=== PATIENT | male | born 1970 | race Hispanic/Latino ===

== ENCOUNTER 2016-10-27 08:45 | Emergency (ER) | payer SELFPAY ==
[2016-10-27 09:33] LABS: %Lymphocytes 36.5 % (21.0-51.0); Hematocrit 50.7 % (42.0-52.0); Mean Platelet Volume 7.6 fL (7.4-10.4); White Blood Cell (WBC) Count 5.5 thou/uL (4.8-10.8)
[2016-10-27 09:34] LABS: #Basophils 0.1 thou/uL (0.0-0.2); #Eosinphils 0.1 thou/uL (0.0-0.7); #Monocytes 0.3 thou/uL (0.11-0.59); #Neutrophils 3.1 thou/uL (1.40-6.50); %Basophils 1.3 % (0.0-1.0); %Eosinophils 0.9 % (0.0-10.0); %Monocytes 6.1 % (0.0-10.0)
[2016-10-27] MEDS ORDERED: traMADol HCl 50 MG TAB ONE (09:37)
[2016-10-27 09:53] LABS: ALT (SGPT) 40 U/L (0-55); AST (SGOT) 24 U/L (5-34); Alkaline Phosphatase 125 U/L (40-150); Anion Gap 14 mmol/L (10-20); BUN (Urea Nitrogen) 15 mg/dL (8.9-20.6); Bilirubin, Total 0.3 mg/dL (0.2-1.2); Calc. Creatinine Clearance 0 mL/min (70-130); Calcium 9.1 mg/dL (7.8-10.44); Carbon Dioxide 24 mmol/L (22-29); Chloride 106 mmol/L (98-107); Estimated GFR-MDRD 84; Globulin 3.5 g/dL (2.4-3.5); Protein, Total 7.9 g/dL (6.0-8.3)
[2016-10-27 09:57] LABS: Troponin I Less than 0.010 ng/mL (< 0.028)
--- NOTE | 2016-10-27 10:37 | ERRECORD ---
[facility] EMERGENCY RECORD HPI SHORTNESS OF BREATH (:07 SHAN) CHIEF COMPLAINT: Patient presents for evaluation of shortness of breath, Patient presents for evaluation of sore throat, back pain, cough. HISTORIAN: History provided by patient, History provided by patient's spouse, History provided by patient's family. ASSOCIATED WITH: Associated with anxiety. EXACERBATED BY: Patient's condition exacerbated by nothing. RELIEVED BY: Patient's condition relieved by nothing. ROS (:07 SHAN) CONSTITUTIONAL: Negative constitutional review of systems. EYES: Negative eye review of systems. ENT: Negative ears, nose, throat review of systems. CARDIOVASCULAR: Negative cardiovascular review of systems. RESPIRATORY: Historian reports cough. GI: Negative gastrointestinal review of systems. MUSCULOSKELETAL: Negative musculoskeletal review of systems. SKIN: Negative skin review of systems. NEUROLOGIC: Negative neurologic review of systems. NOTES: All systems reviewed, negative except as described above. PAST MEDICAL HISTORY (09:03 BDON) MEDICAL HISTORY: No past medical history, Flu vaccine not up to date, Tetanus not up to date, Pneumococcal vaccine not up to date. MALE SURGICAL HISTORY: Patient has no surgical history. PSYCHIATRIC HISTORY: No previous psychiatric history. SOCIAL HISTORY: Patient denies alcohol use, Patient denies drug use, Patient is a former tobacco user, smoked cigarettes, Lives at home, with family. KNOWN ALLERGIES No Known Drug Allergies CURRENT MEDICATIONS (09: EPIE) None VITAL SIGNS VITAL SIGNS: BP: 165/78, Pulse: 85, Resp: 18, Pain: 3, O2 sat: 98, Time: 10/27/2016 08:57. (08:57 EPIE) Temp: 98.0 (Oral), Time: 10/27/2016 09:01. (09: EPIE) BP: 143/73, Pulse: 76, Resp: 20, O2 sat: 96 on Room Air, Time: 10/27/2016 09:30. (09:30 EPIE) BP: 132/59, Pulse: 69, Resp: 16, O2 sat: 97 on Room Air, Time: 10/27/2016 10:00. (10:00 EPIE) BP: 116/65, Pulse: 68, Resp: 18, Temp: 98.1 ORAL, Pain: 1, O2 sat: 98 on ra, Time: 10/27/2016 10:26. (10:26 EPIE) PHYSICAL EXAM (09:07 SHAN) &a-1R&a+25V*p+0X*m1933Y*c202B*c15G*c2P*p-0X&a-25V&a+1R Name: Austin Mitchell : 1970 M45 MedRec: [id number] AcctNum: [id number] Prepared: Merle Oct 27, 2016 10:33 by Interface Page 1 of 3 pMD [facility] EMERGENCY RECORD CONSTITUTIONAL: Patient afebrile, Pulse normal, Blood pressure normal, Respiratory rate normal, Normal pulse oximetry, Patient appears non toxic, Patient appears pain free, Patient alert and oriented to person, place and time, Nursing notes reviewed. HEAD: Head exam included findings of head atraumatic, normocephalic. EYES: Eye exam included findings of eyelids normal to inspection, Pupils equally round and reactive to light, Extraocular muscles intact. ENT: Pharynx exam normal, Uvula exam normal, Tonsil exam normal. NECK: Neck exam included findings of normal range of motion, Trachea midline. RESPIRATORY CHEST: Respiratory and chest exam normal. CARDIOVASCULAR: Cardiovascular exam included findings of heart rate regular rate and rhythm, Heart sounds normal. ABDOMEN MALE: Abdominal exam included findings of abdomen nontender, Bowel sounds normal. BACK: Back exam normal. UPPER EXTREMITY: Upper extremity exam included findings of inspection normal, Range of motion normal. NEURO: Neuro exam normal. SKIN: Skin exam normal. MEDICATION ADMINISTRATION SUMMARY Drug Name: Ultram, Dose Ordered: 100 mg, Route: Oral, Status: Given, Time: 09:50 10/27/2016, Detailed record available in Medication Service section. DOCTOR NOTES (10:14 SHAN) TEXT: Adult male with sorethroat, back pain, shortness of breath, and cough; ongoing for up to two weeks. Extensive workup negative. Stable. Most compatible with acute bronchitis ongoing. PROBLEM LIST No recorded problems DIAGNOSIS (10:17 SHAN) FINAL: PRIMARY: Acute bronchitis, ADDITIONAL: viral syndrome. PRESCRIPTION (10:17 SHAN) Zithromax oral: CAPSULE : 250 mg : ORAL : Quantity: 1 Unit: tab(s) Route: ORAL Schedule: See Notes Dispense: 8 Unit: tab(s) May substitute. Refills: No Refills . NOTES: 2 at first and one daily for seven days No Refills. DISPOSITION &a-1R&a+25V*p+0X*l5533B*c202B*c15G*c2P*p-0X&a-25V&a+1R Name: Austin Mitchell : 1970 5 MedRec: [id number] AcctNum: [id number] Prepared: Merle Oct 27, 2016 10:33 by Interface Page 2 of 3 pMD [facility] EMERGENCY RECORD PATIENT: Disposition Type: Discharge, Disposition: *Discharge Home. (10:17 KRISTINA) Patient left the department. (10:30 CLAY) Benton: KERI=BENITO Ott, Prema WILLIAMSON=BENITO Baptiste, Kourtney ACEVEDO=MD [place], Irving &a-1R&a+25V*p+0X*b8924Z*c202B*c15G*c2P*p-0X&a-25V&a+1R Name: Austin Mitchell : 1970 5 MedRec: [id number] AcctNum: [id number] Prepared: Merle Oct 27, 2016 10:33 by Interface Page 3 of 3 pMD MTDD
--- NOTE | 2016-10-27 10:39 | PICIS ---
[facility] EMERGENCY RECORD TRIAGE (FriOct 27, 2016 09:00 EPIE) TRIAGE NOTES: Difficulty breathing, felt nausea, sore throat, and back pain. (FriOct 27, 2016 09:00 EPIE) PATIENT: AGE: 45, GENDER: male, : Fri1970, TIME OF GREET: FriOct 27, 2016 08:46, PREFERRED LANGUAGE: Nepali, ETHNICITY: or , ECODE BILLING MAP: [facility], Zip Code: [address], KG WEIGHT: 99.79, PHONE: , , , PERSON ID: [id number], PCP: none. (FriOct 27, 2016 09:00 EPIE) NAME: Austin Mitchell. (09:08) COMPLAINT: DIFFICULTY BREATHING. (FriOct 27, 2016 09:00 EPIE) ADMISSION: URGENCY: 3 Urgent, ADMISSION SOURCE: Home, TRANSPORT: Walk-in, BED: TRIAGE. (FriOct 27, 2016 09:00 EPIE) ASSESSMENT: Assessment: Shortness of breath, difficulty breathing, sore throat and nausea., Symptoms began 1 hour ago. (09:03 BDON) TREATMENTS IN PROGRESS: Treatments given Prehospital: none. (09:03 BDON) PROVIDERS: TRIAGE NURSE: Kourtney Baptiste RN. (FriOct 27, 2016 09:00 EPIE) VITAL SIGNS: BP 165/78, Pulse 85, Resp 18, Pain 3, O2 Sat 98, Time 10/27/2016 08:57. (08:57 EPIE) KNOWN ALLERGIES No Known Drug Allergies CURRENT MEDICATIONS (09:01 EPIE) None VITAL SIGNS VITAL SIGNS: BP: 165/78, Pulse: 85, Resp: 18, Pain: 3, O2 sat: 98, Time: 10/27/2016 08:57. (08:57 EPIE) Temp: 98.0 (Oral), Time: 10/27/2016 09:01. (09:01 EPIE) BP: 143/73, Pulse: 76, Resp: 20, O2 sat: 96 on Room Air, Time: 10/27/2016 09:30. (09:30 EPIE) BP: 132/59, Pulse: 69, Resp: 16, O2 sat: 97 on Room Air, Time: 10/27/2016 10:00. (10:00 EPIE) BP: 116/65, Pulse: 68, Resp: 18, Temp: 98.1 ORAL, Pain: 1, O2 sat: 98 on ra, Time: 10/27/2016 10:26. (10:26 EPIE) NURSING ASSESSMENT: FALL RISK (09:41 EPIE) FALL RISK: Fall risk assessment findings include: no history of falls (0), No bed rest greater than 2 days (0), No use of level of consciousness altering agents with mentation or cognitive changes (0), No change in blood pressure (0), No sensory deficits (0), No impaired mobility (0), No neurologic diagnosis (0), No elimination problems (0), No confusion (0), Total score 0, No risk for fall. NURSING ASSESSMENT: HEAD-TO-TOE (09:52 EPIE) &a-1R&a+25V*p+0X*x1029N*c202B*c15G*c2P*p-0X&a-25V&a+1R Name: Austin Mitchell : 1970 M45 MedRec: [id number] AcctNum: [id number] Prepared: Merle Oct 27, 2016 10:33 by Interface Page 1 of 8 pMD [facility] EMERGENCY RECORD CONSTITUTIONAL: Patient arrives ambulatory, Gait steady, History obtained from patient, Patient appears comfortable, Patient cooperative, Patient alert, Oriented to person, place and time, Skin warm, Skin dry, Skin normal in color, Mucous membranes pink, Mucous membranes moist, Patient is well-groomed, Pt reports back pain starting a week ago (lower) States that he has been moving heavy hay bails around. Pt report SOB starting this morning at 0800. Also reports sore throat starting a week ago. PAIN: aching pain, lower back, Onset of pain 10/20/2016, on a scale 0-10 patient rates pain as 3, Pain exacerbated by nothing, Nothing has been tried to alleviate the pain. SKIN: Skin assessment findings include skin warm, Skin dry, Skin normal in color. NEURO: Able to close eyes, Face symmetrical, Speech normal, GCS:, Eye opening: (4) - Spontaneous, Verbal: (5) - Oriented/conversive, Motor: (6) - Obeys commands/Spontaneous, GCS Total: 15. BACK: Back assessment findings include no complaints of tenderness. RESPIRATORY/CHEST: Breath sounds clear, Respiratory assessment findings include respiratory effort easy, Respirations regular, Conversing normally, Neck and chest exam findings include trachea midline, Chest expansion equal, Chest movement symmetrical, no associated cough noted. CARDIOVASCULAR: Heart sounds normal, S1, S2. ABDOMEN: Abdomen assessment findings include abdomen symmetrical, Abdomen soft, no associated nausea, no associated vomiting, no associated diarrhea. GENITOURINARY MALE: no associated urinary complaints. NURSING PROCEDURE: BEDSIDE SIRS TESTING (09:41 EPIE) SCORES: Heart Rate 55-109 (0), Temp range 96.8-101.1 (0), respiratory rate 12-24 (0), Latest WBC 3-14.9 (0), Mental Status altered: no (0), Infection or Suspected Infection: No. NURSING PROCEDURE: MANAGEMENT REP (09:00 EPIE) MANAGEMENT REP: Patient placed on medicaid collection specialist, Patient placed on non-invasive blood pressure monitor, Patient placed on continuous pulse oximetry, Adult/pediatric oxisensor applied. FOLLOW-UP: After procedure, alarms set and on, After procedure, patient tolerating monitoring. NURSING PROCEDURE: DISCHARGE NOTE (10:26 EPIE) DISCHARGE: Patient discharged to home, ambulating without assistance, family driving, accompanied by //partner, Summary of Care printed/ provided, Discharge instructions given to patient, Simple or moderate discharge teaching performed, Prescriptions given and instructions on side effects given, Name of prescription(s) given: zithromax, Above person(s) verbalized understanding of discharge instructions and follow-up care. &a-1R&a+25V*p+0X*p3571Y*c202B*c15G*c2P*p-0X&a-25V&a+1R Name: Austin Mitchell : 1970 M45 MedRec: [id number] AcctNum: [id number] Prepared: Merle Oct 27, 2016 10:33 by Interface Page 2 of 8 pMD [facility] EMERGENCY RECORD BELONGINGS: Belongings and valuables with patient upon arrival to the Emergency Department include:, Belongings and valuables with patient at time of discharge include:, Belongings remain with patient, Valuables remain with patient. VITAL SIGNS: BP: 116, / 65, Pulse: 68, Resp: 18, Temp: 98.1 ORAL, Pain: 1, O2 sat: 98, on: ra. NURSING PROCEDURE: EKG CHART (09:26 EPIE) EK lead EKG performed on the left chest, done by Kourtney OLIVER, first EKG. FOLLOW-UP: After procedure, EKG for interpretation given to Dr. Chino RICE. NURSING PROCEDURE: IV IV SITE 1: IV established, to the left antecubital, using a 20 gauge catheter, in one attempt, IV site prepped with chloroprep, Saline lock established, Flushed with normal saline (mls): 10, Labs drawn at time of placement, labeled in the presence of the patient and sent to lab. (09:20 EPIE) FOLLOW-UP SITE 1: After procedure, no drainage at IV site, After procedure, no swelling at IV site, After procedure, no redness at IV site. (09:20 EPIE) NOTES: Notes: IV DC with catheter intact. Pressure and dressing applied. (10:26 EPIE) NURSING PROCEDURE: NURSE NOTES (10:00 EPIE) NURSES NOTES: Notes: Patient resting with family at bedside. RR even and unlabored. No new complaints at this time. Awaiting lab results at this time. NURSING PROCEDURE: TRANSPORT TO TESTS TRANSPORT TO TESTS: Patient transported to x-ray, via wheelchair, Accompanied by x-ray wafer fab technician. (09:32 EPIE) FOLLOW-UP: After procedure, patient returned to emergency department. (09:48 EPIE) ORDER DETAILS Order Name: B type Natriuretic Peptide, Status: Active, Time: 09:03 10/27/2016, User: KRISTINA, - Ordered for: MD Magana Stanley, - Entered by: MD Magana Stanley - Sun Oct 27, 2016 09:03, - Quantity: 1, Order Name: MANAGEMENT REP ED, Status: Done, Time: 09:12 10/27/2016, User: CLAY, - Ordered for: MD Magana Stanley, - Entered by: MD Magana Stanley - Sun Oct 27, 2016 09:04, - Quantity: 1, Order Name: Cardiac Profile w/CKMB & Troponin - I, Status: Active, Time: 09:03 10/27/2016, User: KRISTINA, &a-1R&a+25V*p+0X*j7566N*c202B*c15G*c2P*p-0X&a-25V&a+1R Name: Austin Mitchell : 1970 M45 MedRec: [id number] AcctNum: [id number] Prepared: Merle Oct 27, 2016 10:33 by Interface Page 3 of 8 pMD [facility] EMERGENCY RECORD - Ordered for: MD Magana Stanley, - Entered by: MD Magana Stanley - Merle Oct 27, 2016 09:03, - Quantity: 1, Order Name: CBC with Differential, Status: Active, Time: 09:03 10/27/2016, User: KRISTINA, - Ordered for: MD Magana Stanley, - Entered by: MD Magana Stanley - Merle Oct 27, 2016 09:03, - Quantity: 1, Order Name: Comprehensive Metabolic Panel, Status: Active, Time: 09:03 10/27/2016, User: KRISTINA, - Ordered for: MD Magana Stanley, - Entered by: MD Magana Stanley - Merle Oct 27, 2016 09:03, - Quantity: 1, Order Name: EKG 12 Lead in Emergency Room, Status: Active, Time: 09:04 10/27/2016, User: KRISTINA, - Ordered for: MD Magana Stanley, - Entered by: MD Magana Stanley - Sun Oct 27, 2016 09:04, - Quantity: 1, Order Name: Strep Group A Screen, Status: Active, Time: 09:03 10/27/2016, User: KRISTINA, - Ordered for: MD Magana Stanley, - Entered by: MD Magana Stanley - Sun Oct 27, 2016 09:03, - Quantity: 1, Order Name: XR Chest 1 View Portable, Status: Canceled, Time: 09:53 10/27/2016, User: Licha, - Ordered for: MD Magana Stanley, - Entered by: MD Magana Stanley - Sun Oct 27, 2016 09:04, - Quantity: 1, Order Name: XR Chest Pa & Lat STANDARD, Status: Active, Time: 09:06 10/27/2016, User: KRISTINA, - Ordered for: MD Magana Stanley, - Entered by: MD Magana Stanley - Merle Oct 27, 2016 09:06, - Quantity: 1, Order Name: XR Lumbar Spine 2 Or 3 View, Status: Active, Time: 09:05 10/27/2016, User: KRISTINA, - Ordered for: MD Magana Stanley, - Entered by: MD Magana Stanley - Merle Oct 27, 2016 09:05, - Quantity: 1, Order Name: XR Thoracic Spine 3 V STANDARD, Status: Active, Time: 09:05 10/27/2016, User: KRISTINA, - Ordered for: MD Magana Stanley, - Entered by: MD Magana Stanley - Sun Oct 27, 2016 09:05, - Quantity: 1. MEDICATION ADMINISTRATION SUMMARY Drug Name: Ultram, Dose Ordered: 100 mg, Route: Oral, Status: Given, Time: 09:50 10/27/2016, Detailed record available in Medication Service section. &a-1R&a+25V*p+0X*p4679A*c202B*c15G*c2P*p-0X&a-25V&a+1R Name: Austin Mitchell : 1970 M45 MedRec: [id number] AcctNum: [id number] Prepared: FriOct 27, 2016 10:33 by Interface Page 4 of 8 pMD [facility] EMERGENCY RECORD MEDICATION SERVICE (09:50 KRISTINA) Ultram: Order: Ultram (tramadol HCl) - Dose: 100 mg : Oral Schedule: Now Ordered by: Irving Magana MD Entered by: MD Merle Woody Oct 27, 2016 09:04 , Acknowledged by: BENITO Bhatti Oct 27, 2016 09:36 Documented as given by: BENITO Bhatti Oct 27, 2016 09:50 Patient, Medication, Dose, Route and Time verified prior to administration. Amount given: 100mg, Site: Medication administered P.O., Correct patient, time, route, dose and medication confirmed prior to administration, Patient advised of actions and side-effects prior to administration, Allergies confirmed and medications reviewed prior to administration. HPI SHORTNESS OF BREATH (: [facility]) CHIEF COMPLAINT: Patient presents for evaluation of shortness of breath, Patient presents for evaluation of sore throat, back pain, cough. HISTORIAN: History provided by patient, History provided by patient's spouse, History provided by patient's family. ASSOCIATED WITH: Associated with anxiety. EXACERBATED BY: Patient's condition exacerbated by nothing. RELIEVED BY: Patient's condition relieved by nothing. ROS (: [facility]) CONSTITUTIONAL: Negative constitutional review of systems. EYES: Negative eye review of systems. ENT: Negative ears, nose, throat review of systems. CARDIOVASCULAR: Negative cardiovascular review of systems. RESPIRATORY: Historian reports cough. GI: Negative gastrointestinal review of systems. MUSCULOSKELETAL: Negative musculoskeletal review of systems. SKIN: Negative skin review of systems. NEUROLOGIC: Negative neurologic review of systems. NOTES: All systems reviewed, negative except as described above. PAST MEDICAL HISTORY (:03 BDON) MEDICAL HISTORY: No past medical history, Flu vaccine not up to date, Tetanus not up to date, Pneumococcal vaccine not up to date. MALE SURGICAL HISTORY: Patient has no surgical history. PSYCHIATRIC HISTORY: No previous psychiatric history. SOCIAL HISTORY: Patient denies alcohol use, Patient denies drug use, Patient is a former tobacco user, smoked cigarettes, Lives at home, with family. PHYSICAL EXAM (:) CONSTITUTIONAL: Patient afebrile, Pulse normal, Blood pressure &a-1R&a+25V*p+0X*e6439R*c202B*c15G*c2P*p-0X&a-25V&a+1R Name: Austin Mitchell : 1970 M45 MedRec: [id number] AcctNum: [id number] Prepared: Merle Oct 27, 2016 10:33 by Interface Page 5 of 8 pMD [facility] EMERGENCY RECORD normal, Respiratory rate normal, Normal pulse oximetry, Patient appears non toxic, Patient appears pain free, Patient alert and oriented to person, place and time, Nursing notes reviewed. HEAD: Head exam included findings of head atraumatic, normocephalic. EYES: Eye exam included findings of eyelids normal to inspection, Pupils equally round and reactive to light, Extraocular muscles intact. ENT: Pharynx exam normal, Uvula exam normal, Tonsil exam normal. NECK: Neck exam included findings of normal range of motion, Trachea midline. RESPIRATORY CHEST: Respiratory and chest exam normal. CARDIOVASCULAR: Cardiovascular exam included findings of heart rate regular rate and rhythm, Heart sounds normal. ABDOMEN MALE: Abdominal exam included findings of abdomen nontender, Bowel sounds normal. BACK: Back exam normal. UPPER EXTREMITY: Upper extremity exam included findings of inspection normal, Range of motion normal. NEURO: Neuro exam normal. SKIN: Skin exam normal. EVENTS TRANSFER: Triage to Emergency Triage. (Merle Oct 27, 2016 09:00 EPIE) Emergency Triage to Emergency Room -03. (09:01 BDON) Removed from Emergency Emergency Room -03. (10:30 EPIE) DOCTOR NOTES (10:14 SHAN) TEXT: Adult male with sorethroat, back pain, shortness of breath, and cough; ongoing for up to two weeks. Extensive workup negative. Stable. Most compatible with acute bronchitis ongoing. PROBLEM LIST No recorded problems DIAGNOSIS (10:17 SHAN) FINAL: PRIMARY: Acute bronchitis, ADDITIONAL: viral syndrome. DISPOSITION PATIENT: Disposition Type: Discharge, Disposition: *Discharge Home. (10:17 SHAN) Patient left the department. (10:30 EPIE) INSTRUCTION (10:18 SHAN) DISCHARGE: VIRAL SYNDROME (ADULT). SPECIAL: 1. antibiotic as directed 2. rest, take in extra fluids 3. return if condition worsens &a-1R&a+25V*p+0X*x4311G*c202B*c15G*c2P*p-0X&a-25V&a+1R Name: Austin Mitchell : 1970 M45 MedRec: [id number] AcctNum: [id number] Prepared: Merle Oct 27, 2016 10:33 by Interface Page 6 of 8 pMD [facility] EMERGENCY RECORD 4. followup with regular provider in about a week. PRESCRIPTION (10:17 SHAN) Zithromax oral: CAPSULE : 250 mg : ORAL : Quantity: 1 Unit: tab(s) Route: ORAL Schedule: See Notes Dispense: 8 Unit: tab(s) May substitute. Refills: No Refills . NOTES: 2 at first and one daily for seven days No Refills. IMAGING *DISCHARGE INSTRUCTIONS RECEIPT: Image captured from scanner. (10: EPIE) *SUPPLY CHARGE SHEET: Image captured from scanner. (10: EPIE) *EKG: Image captured from scanner. (: EPIE) ADMIN (10:18 SHAN) DIGITAL SIGNATURE: MD Magana Stanley. RESULTS LABORATORY: CBC with Differential Collection DT: Merle Oct 27, 2016 09:31, White Blood Cell (WBC) Count 5.5 thou/uL, Range (4.8-10.8), Red Blood Cell (RBC) Count 5.70 mill/uL, Range (4.70-6.10), Hemoglobin 16.3 g/dL, Range (14.0-18.0), Hematocrit 50.7 %, Range (42.0-52.0), Mean Corpuscular Volume 89.0 fl, Range (80.0-94.0), Mean Corpuscular Hemoglobin 28.6 pg, Range (27.0-31.0), Mean Corpuscular HGB CONC 32.1 g/dL, Range (32.0-36.0), RBC Distribution Width 12.3 %, Range (11.5-14.5), Platelet Count 233 thou/uL, Range (130-400), Mean Platelet Volume 7.6 fL, Range (7.4-10.4), %Neutrophils 55.3 %, Range (42.0-75.0), %Lymphocytes 36.5 %, Range (21.0-51.0), %Monocytes 6.1 %, Range (0.0-10.0), %Eosinophils 0.9 %, Range (0.0-10.0), *%Basophils 1.3 - H %, Range (0.0-1.0), #Neutrophils 3.1 thou/uL, Range (1.40-6.50), #Lymphocytes 2.0 thou/uL, Range (1.20-3.40), #Monocytes 0.3 thou/uL, Range (0.11-0.59), #Eosinphils 0.1 thou/uL, Range (0.0-0.7), #Basophils 0.1 thou/uL, Range (0.0-0.2). (09:47 SHAN) MICROBIOLOGY: Strep Group A Screen: [id number] Collection DT: Merle Oct 27, 2016 09:31, See comment below , @ ER ROOM#: ER-03 Source: Throat Spec Desc: PENDING, Strep A Negative CDC recommends , confirmation by , culture on all , &a-1R&a+25V*p+0X*q9840X*c202B*c15G*c2P*p-0X&a-25V&a+1R Name: Austin Mitchell : 1970 [facility] [place], [place] MedRec: [id number] AcctNum: [id number] Prepared: Merle Oct 27, 2016 10:33 by Interface Page 7 of 8 pMD [facility] EMERGENCY RECORD negative , Strep negative line 1 Group A , Streptococcus rapid , screens. Please , order , Strep negative line 2 a throat culture if , clinically , indicated. , Rapid Strep Screen:Throat Negative . (09:51 KRISTINA) Benton: KERI=BENITO Ott, Prema WILLIAMSON=BENITO Baptiste, Kourtney ACEVEDO=MD [place], Irving &a-1R&a+25V*p+0X*o6244G*c202B*c15G*c2P*p-0X&a-25V&a+1R Name: Austin Mitchell : 1970 5 MedRec: [id number] AcctNum: [id number] Prepared: Merle Oct 27, 2016 10:33 by Interface Page 8 of 8 pMD MTDD
--- NOTE | 2016-10-27 12:33 | RAD ---
CHEST TWO VIEWS HISTORY: Shortness of breath. COMPARISON: None. FINDINGS: Normal cardiac silhouette. The pulmonary vessels and hilum are normal. The costophrenic angles are clear. No masses. No consolidation. No pneumothorax or osseous abnormality. IMPRESSION: No acute cardiopulmonary process. POS: [facility]
--- NOTE | 2016-10-27 12:49 | RAD ---
THORACIC SPINE THREE VIEWS HISTORY: Shortness of breath. Back pain. COMPARISON: None. FINDINGS: Thoracic spine, three views, shows evaluation of the upper thoracic spine is limited. Vertebral bod y height is maintained. No fracture. Disk space height is preserved. IMPRESSION: Unremarkable thoracic spine, three views. POS: [facility]
--- NOTE | 2016-10-27 12:59 | RAD ---
LUMBAR SPINE THREE VIEWS HISTORY: Back pain. COMPARISON: None. FINDINGS: Five lumbar type vertebral bodies. Vertebral body height is maintained. Minimal osteophyte formati on. No fractures or malalignment. IMPRESSION: Minimal degenerative change. POS: [facility]
== END 2016-10-27 10:26 | disposition home or self-care (01) ==
LOC: NAV ERS 08:45
DX: J20.9 Acute bronchitis, unspecified (principal); B34.9 Viral infection, unspecified; Z87.891 Personal history of nicotine dependence
CPT/HCPCS: 71020; 72072; 72100; 80053; 82553; 83880; 84484; 85025; 87430; 93005